=== PATIENT | male | born 1955 | race Caucasian/White ===

== ENCOUNTER 2020-12-29 07:04 | Day surgery (SDC) | payer MEDICAID ==
[~2020-12-29] VITALS: Ht 195.6 cm; Wt 113.4 kg
[~2020-12-29 07:04] MED LIST: ASCO500T11 PO; CYAN1TAB18 PO; ESOM20CA PO; FURO20TA3 PO; GLUC1TAB22 PO; METO25TA5 PO; MULT-733 PO; OMEG100078 PO; POTA1TAB61 PO; RIVA20TA PO; VITA180C PO
[2020-12-29] MEDS ORDERED: ceFAZolin 1GM/50ML 50 ML IV ONE (07:41)
[2020-12-29] MEDS ORDERED: BUPIVACAINE 0.25% INJ 50ML VIAL ONE (08:44)
[2020-12-29] MEDS ORDERED: PROPOFOL 10 MG/ML 20 ML IV ONE (09:09)
[2020-12-29] MEDS ORDERED: ROCURONIUM 10MG/ML 10ML VIAL IV ONE (09:09)
[2020-12-29] MEDS ORDERED: HYDROmorphone HCL 2 MG/ML VL ONE (09:37)
[2020-12-29] MEDS ORDERED: ceFAZolin 1GM VL ONE ×2 (09:39→09:54)
[2020-12-29] MEDS ORDERED: ceFAZolin 1GM/50ML 100 ML IV ONE (09:41)
[2020-12-29] MEDS ORDERED: GLYCOPYRROLATE 0.2 MG/ML 1ML VIAL ONE (09:56)
[2020-12-29] MEDS ORDERED: ePHEDrine SULFATE 50 MG/ML AMP ONE (09:57)
[2020-12-29] MEDS ORDERED: METOCLOPRAMIDE HCL 5MG/ml INJ 2ml VIAL IV PRN (10:30)
[2020-12-29] MEDS ORDERED: KETOROLAC TROMETH 30 MG/ML 1ML VIAL IV ONE (10:30)
[2020-12-29] MEDS ORDERED: ONDANSETRON HCL 4 MG/2 ML VIAL IV PRN (10:30)
[2020-12-29] MEDS ORDERED: HYDROmorphone HCL 2 MG/ML VL IV PRN ×2 (10:30)
[2020-12-29] MEDS ORDERED: ePHEDrine SULFATE 50 MG/ML AMP IV PRN (10:30)
[2020-12-29 11:10] VITALS: BP 128/66
== END 2020-12-29 11:55 | disposition home or self-care (01) ==
LOC: SUR 07:04
PROVIDERS: ATTEND Surgery
DX: K42.9 Umbilical hernia without obstruction or gangrene (principal); D17.1 Benign lipomatous neoplasm of skin and subcutaneous tissue of trunk; I48.91 Unspecified atrial fibrillation; K21.9 Gastro-esophageal reflux disease without esophagitis; Z98.890 Other specified postprocedural states; Z79.899 Other long term (current) drug therapy; Z20.822 Contact with and (suspected) exposure to COVID-19; Z87.891 Personal history of nicotine dependence; Z88.5 Allergy status to narcotic agent; Z68.29 Body mass index [BMI] 29.0-29.9, adult
CPT/HCPCS: 22902; 49585; C1781; J0690; J1170; J2704; J3490; U0003; 88302

== ENCOUNTER 2025-05-05 16:46 | Emergency (ER) | payer MEDICAID, OTHER ==
[~2025-05-05] VITALS: Ht 195.6 cm; Wt 108.9 kg
[~2025-05-05 16:46] MED LIST changes: -CYAN1TAB18 PO; +CYAN1TAB19 PO; +OMEG-20 PO; -OMEG100078 PO; +POTA-215 PO; -POTA1TAB61 PO; +VITA-89 PO; -VITA180C PO
--- NOTE | 2025-05-05 17:41 | ED.PDOC ---
History of Present Illness HPI Comments 70-year-old male presents with a chief complaint of cough and hemoptysis. Patient states that his symptoms have been present for the past week and a half. Patient also reports that he is feeling SOB and gets winded easily. Patient reports that the blood he coughs up is dark red in color. Patient mentions that he has had "my lung punctured back in 2005" and has had a rib removed on that same side. Chief Complaint: Cough Time Seen by MD: 17:32 Reviewed Notes: Medications, Allergies Allergies: Coded Allergies: Morphine (Verified Allergy, Unknown, 12/26/20) Home Meds Reported Medications Potassium Chloride (Klor-Con M10) 10 Meq Tab, 1 TAB PO DAILY, #30 TAB 5 Refills 12/26/20 Furosemide (Furosemide) 20 Mg Tab, 20 MG PO DAILY for 30 Days, MG 12/26/20 Metoprolol Tartrate (Metoprolol Tartrate) 25 Mg Tab, 1 TAB PO BID, #180 TAB 1 Refill 12/26/20 Rivaroxaban (XARELTO) 20 Mg Tab, 1 TAB PO DAILY, #30 TAB 11 Refills 12/26/20 Esomeprazole Magnesium Trihydr (Nexium) 20 Mg Cap, 1 CAP PO DAILY, #30 CAP 2 R efills 12/26/20 Multiple Vitamins W/ Minerals (Centrum Silver) Silver Tab, 1 TAB PO DAILY, TAB 12/26/20 Tocopheryl Acetate, Dl-Alpha (Vitamin E) 180 Mg Cap, 180 MG PO DAILY, CAP 12/26/20 Cyanocobalamin (Vitamin B-12) 5,000 Mcg Tab, 5000 MCG PO DAILY, TAB 12/26/20 Ascorbic Acid (VITAMIN C TABLET) 500 Mg Tb, 1 TAB PO DAILY, #30 TAB 3 Refills 12/26/20 Glucosamine Hydrochloride (Glucosamine) 1,500 Mg Tab, 1500 MG PO DAILY, TAB 12/26/20 [place]-3 Fatty Acids (FISH OIL) 1,000 Mg Cap, 1000 MG PO DAILY, CAP 12/26/20 Information Source: Patient Mode of Arrival: Ambulatory Severity: Moderate Timing: Days Duration: Since onset Prehospital treatment: None Past Medical History PAST MEDICAL HISTORY: Denies Surgical History (Other): SPINAL FUSION Family History Family History: Reviewed,noncontributory to illness Social History Smoker: Quit Greater Than 1 Year Alcohol: Denies ETOH Use Drugs: Denies Drug Use Lives In: Home Constitutional: denies: chills, diaphoresis, fatigue, fever, malaise, sweats, weakness, others EENTM: denies: blurred vision, double vision, ear bleeding, ear discharge, ear drainage, ear pain, ear ringing, eye pain, eye redness, hearing loss, mouth pa in, mouth swelling, nasal discharge, nose bleeding, nose congestion, nose pain, photophobia, tearing, throat pain, throat swelling, voice changes, others Respiratory: reports: cough, hemoptysis; denies: orthopnea, SOB at rest, shortness of breath, SOB with excertion, stridor, wheezing, others Cardiovascular: denies: chest pain, dizzy spells, diaphoresis, Dyspnea on exertion, edema, irregular heart beat, left arm pain, lightheadedness, palpitations, PND, syncope, others Gastrointestinal: denies: abdomen distended, abdominal pain, blood streaked bowels, constipated, diarrhea, dysphagia, difficulty swallowing, hematemesis, melena, nausea, poor appetite, poor fluid intake, rectal bleeding, rectal pain, vomiting, others Genitourinary: denies: burning, dysuria, flank pain, frequency, hematuria, incontinence, penile discharge, penile sore, pain, testicle pain, testicle swelling, urgency, others Neurological: denies: dizziness, fainting, headache, left sided numbness, left sided weakness, numbness, paresthesia, pre-existing deficit, right sided numbness, right sided weakness, seizure, speech problems, tingling, tremors, weakness, others Musculoskeletal: denies: back pain, gout, joint pain, joint swelling, muscle pain, muscle stiffness, neck pain, others Integumetry: denies: bruises, change in color, change in hair/nails, dryness, laceration, lesions, lumps, rash, wounds, others Allergic/Immunocompromised: denies: Difficulty Healing, Frequent Infections, Hives, Itching, others Hematologic/Lymphatic: denies: anemia, blood clots, easy bleeding, easy bruising, swollen glands, others Endocrine: denies: excessive hunger, excessive sweating, excessive thirst, excessive urination, flushing, intolerance to cold, intolerance to heat, unexplained weight gain, unexplained weight loss, others Psychiatric: denies: anxiety, bipolar disorder, depression, hopeless, panic disorder, schizophrenia, sleepless, suicidal, others All Other Systems: Reviewed and Negative Physical Exam General Appearance: No Apparent Distress, Normal HEENT: Normal ENT Inspection, Pharynx Normal, TMs Normal Neck: Full Range of Motion, Non-Tender, Normal, Normal Inspection Respiratory: Chest Non-Tender, Lungs Clear, No Accessory Muscle Use, No Respiratory Distress, Normal Breath Sounds Cardiovascular: No Edema, No JVD, No Murmur, No Gallop, Normal Peripheral Pulses, Regular Rate/Rhythm Breast Exam: Deferred Gastrointestinal: No Organomegaly, Non Tender, No Pulsatile Mass, Normal Bowel Sounds, Soft Genitalia: Deferred Pelvic: Deferred Rectal: Deferred Extremities: No calf tenderness, Normal capillary refill, Normal inspection, Normal range of motion, Non-tender, No pedal edema Musculoskeletal : Apperance: Normal Neurologic: Alert, 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 Was a procedure done?: No Differential Dx Considerations may include: URI, INFLUENZA, COVID, STREP THROAT, PHARYNGITIS, PNEUMONIA X-Ray, Labs, Meds, VS Vital Signs Date Time Temp Pulse Resp B/P (MAP) Pulse Ox O2 Delivery O2 Flow Rate FiO2 05/05/25 16:48 98.1 65 20 147/67 94 98.1 Lab Test 05/05/25 17:47 Range/Units White Blood Count 7.1 4.4-10.8 10^3/uL Red Blood Count 4.66 4.5-5.90 10^6/uL Hemoglobin 14.6 13.5-17.5 g/dL Hematocrit 41.0 41.0-53.0 % Mean Corpuscular Volume 88.0 80.0-100.0 fL Mean Corpuscular Hemoglobin 31.3 28.0-32.0 pg Mean Corpuscular Hemoglobin Concent 35.5 32.0-36.0 g/dL Red Cell Distribution Width 13.3 11.8-14.3 % Platelet Count 309 140-450 10^3/uL Mean Platelet Volume 8.5 6.9-10.8 fL Neutrophils (%) (Auto) 68.8 37.0-80.0 % Lymphocytes (%) (Auto) 17.7 10.0-50.0 % Monocytes (%) (Auto) 8.4 0.0-12.0 % Eosinophils (%) (Auto) 3.6 0.0-7.0 % Basophils (%) (Auto) 1.5 0.0-2.0 % Neutrophils # (Auto) 4.9 1.6-8.6 10 ^3/uL Lymphocytes # (Auto) 1.3 0.4-5.4 10 ^3/uL Monocytes # (Auto) 0.6 0-1.3 10 ^3/uL Eosinophils # (Auto) 0.3 0-0.8 10 ^3/uL Basophils # (Auto) 0.1 0-0.2 10 ^3/uL Nucleated Red Blood Cells 0.1 % Sodium Level 140 136-145 mmol/L Potassium Level 4.3 3.5-5.1 mmol/L Chloride Level 104 98-107 mmol/L Carbon Dioxide Level 28 20-31 mmol/L Anion Gap 8 5-15 Blood Urea Nitrogen 16 9-23 mg/dL Creatinine 0.80 0.700-1.30 mg/dL Glomerular Filtration Rate Calc 96 >90 mL/min BUN/Creatinine Ratio 20.0 10.0-20.0 Serum Glucose 95 74-106 mg/dL Calcium Level 10.0 8.7-10.4 mg/dL X-Ray, Labs, Meds, VS Comment CT CHEST: IMPRESSION: Limited evaluation without contrast. Complex lesion of the right lung base measuring 8.4 x 7.8 cm with solid and cavitary /air-fluid component. This appears to communicate with a right upper quadrant abdominal complex lesion with thick nodular borders and solid, liquid/necrotic components measuring 14.2 x [address] abdomen pelvis with contrast surgical/oncology consultation to evaluate for potential neoplastic process. Tissue sampling can also be considered to further evaluate. Bilateral atelectatic changes. Pulmonary emphysematous changes. Splenomegaly. Left pleural calcifications which can be secondary to previous trauma/ infection, asbestos exposure. Old left rib fractures. Other findings as described. ENT WILL BE ADMITTED FOR SHORTNESS A BREATH AND HEMOPTYSIS RECOMMEND PULMONOLOGY CONSULT PATIENT HEMODYNAMICALLY STABLE, GOT A SIGNS REVIEWED BY THIS PROVIDER, Time of 1ST Reevaluation: 18:02 Reevaluation 1ST: Unchanged Patient Education/Counseling: Diagnosis, Treatment Family Education/Counseling: No Family Present SEPSIS Sepsis Screen Date sepsis recognized/suspect: May 05, 2025 Time Sepsis recognized/suspect: 1648 Recent Procedure: No On Antibiotic Therapy: No Respiratory Rate >20: No Heart Rate >90: No Temp<36 C (96.8 F) or >38.3 C: No SBP <90 or MAP <65 mmHG: No New Acute Mental Status Change: No Is the patient on CPAP, BIPAP,: No Physician Orders Chest Without Contrast (05/05/25 17:40) Vital Signs Date Time Temp Pulse Resp B/P (MAP) Pulse Ox O2 Delivery O2 Flow Rate FiO2 05/05/25 16:48 98.1 65 20 147/67 94 98.1 Laboratory Tests Test 05/05/25 17:47 White Blood Count 7.1 10^3/uL (4.4-10.8) Departure 1 Departure Time of Disposition: 19:45 Impression: Primary Impression: Shortness of breath Additional Impression: Hemoptysis Disposition: 09 ADMITTED INPATIENT Condition: Fair Discharged With: Self Critical Care Note Critical Care Time?: No Stability Stability form required: No Heart Score Heart Score: Heart Score Response (Comments) Value History N/A 0 EKG N/A 0 Age N/A 0 Risk Factors N/A 0 Troponin N/A 0 Total 0 I personally scribed for DONNA MOSCOSO ([email or web address]) on 05/05/25 at 17:41. Electronically submitted by Jared Damian ([email or web address]). DONNA MOSCOSO May 05, 2025 17:41
[2025-05-05 18:03] LABS: Hematocrit 41.0 % (41.0-53.0); Hemoglobin 14.6 g/dL (13.5-17.5); Mean Corpuscular Hemoglobin 31.3 pg (28.0-32.0); Mean Corpuscular Volume 88.0 fL (80.0-100.0); Nucleated Red Blood Cells % 0.1 %
[2025-05-05 18:11] LABS: Anion Gap 8 (5-15); Carbon Dioxide 28 mmol/L (20-31); Chloride 104 mmol/L (98-107); Potassium 4.3 mmol/L (3.5-5.1); Sodium 140 mmol/L (136-145)
[2025-05-05 18:12] LABS: Calcium 10.0 mg/dL (8.7-10.4)
[2025-05-05 18:17] LABS: BUN/Creatinine Ratio 20.0 (10.0-20.0); Blood Urea Nitrogen 16 mg/dL (9-23); Glucose 95 mg/dL (74-106)
--- NOTE | 2025-05-05 18:38 | DVH ---
Indication: SOB Technique: CT axial images of the chest are obtained without contrast. Coronal and sagittal reformats were obtained. Radiation Dose Information: CTDI volume is 24.3 mGy. Dose-length product is 895.99 mGy*cm Comparison: None FINDINGS: Trachea patent. No pneumothorax. Bilateral atelectasis. Pulmonary emphysematous changes. There is a complex appearing lesion near the right lung base with solid and cavitary /air-fluid level measuring 8.4 x 7.9 cm. There is a right upper quadrant abdominal lesion with solid and fluid components with p eripheral thick nodularity, calcifications measuring 14.2 x 9.2 cm which may be extending through the diaphragm into the right thoracic cavity. Heart enlarged. Coronary artery calcification disease. Aortic atherosclerotic disease. No supraclavicular or axillary lymphadenopathy. 13 mm pretracheal lymph node. 6 mm subcarinal lymph n ode. No significant pleural effusion. Spleen enlarged measuring 13.7 cm AP. Small hiatal hernia. Moderate thoracic degenerative disc disease T5 through T7 cage device and left lateral fixation hardw are. Left pleural calcifications. Old left rib fractures. IMPRESSION: Limited evaluation without contrast. Complex lesion of the right lung base measuring 8.4 x 7.8 cm with solid and cavitary /air-fluid compo nent. This appears to communicate with a right upper quadrant abdominal complex lesion with thick no dular borders and solid, liquid/necrotic components measuring 14.2 x 9.[address] abdomen pel vis with contrast surgical/oncology consultation to evaluate for potential neoplastic process. Tissue sampling can also be considered to further evaluate. Bilateral atelectatic changes. Pulmonary emphysematous changes. Splenomegaly. Left pleural calcifications which can be secondary to previous trauma/ infection, asbestos exposure. Old left rib fractures. Other findings as described.
[2025-05-05] MEDS: IOHEXOL 300 MG/ML 100ML BOTTLE IJ ONE (22:53)
--- NOTE | 2025-05-06 00:18 | DVH ---
Exam: CT CT CHEST/AB/PL W CON- IV ONLY History: SOB Comparison Study: CT CHEST WITHOUT CONTRAST on DOS: 05/05/25 Technique: Multidetector spiral CT of the chest, abdomen and pelvis was performed from lower neck to pubic symphysis. Intravenous contrast was administered during this examination. Portal venous imagi ng was obtained. Axial, coronal and sagittal multiplanar reformats were performed by the technologist on a separate workstation. Radiation Dose : 1. Chest/Abdomen/Pelvis: CTDIvol 25.11 mGy, DLP 1872.49 mGy*cm. Findings: Lower neck: Normal thyroid. Redemonstrated complex predominantly cystic tri lobed pleural-based mass occupying the posterolateral inferior right arron thorax, inseparable from the diaphragmatic leaflet. There are calcification with in soft tissue density material at the periphery of the mass and an air-fluid level with central cavi tation and necrosis is noted within the most cephalad moiety, which measures 9.2 x 6.5 x 5.6 cm. The larger caudal most moiety measures 15.9 x 9.6 x 11.2 cm. The intermediate moiety measures 9.2 x 6.3 x 5.0 cm. Chronic appearing pleural-based scarring and pleural thickening of the lateral left lung base. Heart/Vascular Structures: Cardiomegaly. No pericardial effusion. Lymph Nodes: No adenopathy Liver: The liver is enlarged, measuring 19.1 cm in craniocaudal dimension. No focal lesions. Normal hepatic vascular enhancement. Gallbladder and Biliary Tree: Unremarkable Spleen: Enlarged, measuring 13.2 cm in craniocaudal dimension. Pancreas: The pancreas is normal in appearance without focal lesions or abnormal enhancement. Adrenal Glands: Unremarkable Kidneys: Kidneys demonstrate normal symmetric enhancement without focal lesions, calculi or hydroneph rosis. Bladder: Unremarkable Bowel: The stomach is grossly normal in appearance. Small bowel and colon are normal in caliber and d istribution. The appendix is not visualized; however, no secondary findings of acute appendicitis id entified. Ascites: Absent Lymphadenopathy: No mesenteric, retroperitoneal or periportal lymphadenopathy. Abdominal Wall and Mesentery: Unremarkable. Vasculature: The visualized abdominal aorta is normal in size and caliber. Atherosclerotic vascular c alcifications. Abdominal and pelvic vessels demonstrate normal enhancement. Pelvic Organs: The prostate is enlarged, measuring 5.5 cm transverse. Musculoskeletal: No aggressive focal bony lesions, acute fractures or dislocation. IMPRESSION: 1. Large complex lobulated multifocal pleural-based predominantly cystic lateral inferior right hemit horacic mass exhibiting calcifications within peripheral soft tissue density, at least the cephalad m ost moiety of which exhibits central cavitation, necrosis and an air-fluid level. Additional pleural- based scarring and thickening is noted within the lateral left lung base. These changes have a more c hronic appearance, however, a neoplastic process can not be completely excluded. Tissue biopsy is rec ommended. 2. Cardiomegaly. 3. Hepatosplenomegaly. 4. Prostatomegaly.
[2025-05-06 02:31] VITALS: BP 150/74; TEMP 97.7
[2025-05-06 02:33] VITALS: PULSE 58; RESP 18; O2SAT 96
== END 2025-05-06 02:45 | disposition short-term general hospital (02) ==
LOC: ER 16:46
DX: R06.02 Shortness of breath (principal); R04.2 Hemoptysis; Z88.5 Allergy status to narcotic agent; Z79.899 Other long term (current) drug therapy
CPT/HCPCS: 36415; 71250; 71260; 74177; 80048; 85025; 99285; Q9967